=== PATIENT | female | born 1970 | race Hispanic/Latino ===

== ENCOUNTER 2018-12-24 09:49 | Inpatient (IN) | payer BC ==
[~2018-12-24] VITALS: Ht 152.4 cm; Wt 63.0 kg
[2018-12-24] MEDS ORDERED: ONDANSETRON HCL INJ 2MG/ML 2ML 2 MG/ML VIAL IV STA (10:12)
[2018-12-24] MEDS ORDERED: KETOROLAC TROMETHAMINE 30 MG/ML VIAL IV STA (10:12)
[2018-12-24] MEDS ORDERED: SODIUM CHLORIDE 0.9% 1000ML 1,000 ML IV STA (10:12)
[2018-12-24 10:32] LABS: BASOPHILS % 0.2 % (0.0-1.0); EOSINOPHILS % 0.1 % (0.0-6.0); HEMATOCRIT 39.7 % (34.2-44.1); HEMOGLOBIN 13.4 g/dL (12.0-16.0); LYMPHOCYTES % 11.6 % (18.0-39.1); MEAN CORPUSCULAR HEMOGLOBIN 29.6 pg (28-32); MEAN CORPUSCULAR HGB CONC 33.8 g/dL (31-35); MEAN CORPUSCULAR VOLUME 87.6 fL (81-99); MONOCYTES # (AUTO) 1.6 (0.2-0.8); MONOCYTES % 9.4 % (4.4-11.3); NEUTROPHILS # (AUTO) 13.3 (2.1-6.9); NEUTROPHILS % 78.3 % (38.7-80.0); PLATELET COUNT 306 x10e3/uL (140-360); RED BLOOD COUNT 4.53 x10e6/uL (3.6-5.1)
[2018-12-24 10:34] LABS: BILIRUBIN,URINE NEGATIVE (NEGATIVE); CLARITY,URINE CLEAR (CLEAR); COLOR,URINE YELLOW (YELLOW); KETONES,URINE NEGATIVE (NEGATIVE); LEUKOCYTE ESTERASE ,URINE LARGE (NEGATIVE); NITRITE,URINE NEGATIVE (NEGATIVE); PROTEIN,URINE DIPSTICK 1+ (NEGATIVE); URINE UROBILINOGEN 0.2 mg/dL (0.2 - 1)
[2018-12-24] MEDS ORDERED: CEFTRIAXONE SOD 1 GM/NS 50 ML 50 ML IV STA (10:48)
[2018-12-24] MEDS ORDERED: ONDANSETRON HCL INJ 2MG/ML 2ML 2 MG/ML VIAL ONE ×2 (10:50→13:54)
[2018-12-24 10:51] LABS: WBC,URINE (MAN) >50 /HPF (0-5)
[2018-12-24 10:52] LABS: BACTERIA,URINE MODERATE /HPF; EPITHELIAL CELLS,URINE MODERATE /LPF
[2018-12-24 10:54] LABS: ALANINE AMINOTRANSFERASE 44 IU/L (0-55); ALBUMIN 3.3 g/dL (3.5-5.0); ALBUMIN/GLOBULIN RATIO 0.7 (0.8-2.0); ALKALINE PHOSPHATASE 162 IU/L (40-150); ANION GAP 12.2 mmol/L (8-16); BLOOD UREA NITROGEN 6 mg/dL (7-26); BUN/CREATININE RATIO 8 (6-25); CALCIUM 10.1 mg/dL (8.4-10.2); CARBON DIOXIDE 27 mmol/L (22-29); CHLORIDE 100 mmol/L (98-107); CREATININE, SERUM 0.77 mg/dL (0.57-1.11); EST GLOMERULAR FILTRATION RATE > 60 ML/MIN (60-); GLUCOSE 125 mg/dL (74-118); POTASSIUM 3.2 mmol/L (3.5-5.1); SODIUM 136 mmol/L (136-145)
[2018-12-24 11:03] LABS: EOSINOPHILS % (MANUAL) 1 % (0-7); LYMPHOCYTES % (MANUAL) 12 % (19-48); MONOCYTES % (MANUAL) 11 % (3.4-9.0); NEUTROPHILS % (MANUAL) 75 % (40-74)
[2018-12-24 11:05] LABS: PLATELET ESTIMATE ADEQUATE; PLATELET MORPHOLOGY COMMENT FEW LARGE; RBC MORPHOLOGY COMMENT NORMAL
--- NOTE | 2018-12-24 11:52 | Diagnostic Imaging Report ---
EXAM: Right upper quadrant abdominal ultrasound INDICATION: Right upper quadrant pain COMPARISON: None. TECHNIQUE: Transverse and longitudinal images of the right upper quadrant abdomen were obtained FINDINGS: Liver: Size: 12.8 cm in the right midclavicular line, normal Appearance: Increased echogenicity, smooth contour Mass: No focal masses Gallbladder: The gallbladder is filled with gallstones with posterior shadowing. No pericholecystic fluid. No gallbladder distention. Negative reported sonographic Browning's sign. Gallbladder wall measures 4 mm. Bile Ducts: Intrahepatic Ducts: No dilatation Extrahepatic Ducts: Common bile duct measures 3 mm. Pancreas: Visualized portions of the pancreatic head, neck and proximal body are normal. Kidney: The right kidney measures 11.9 cm without evidence of hydronephrosis or stone. Vessels: Aorta: Visualized portions are normal Inferior Vena Cava: Visualized portions are normal Main Portal Vein: 1.4 cm, normal size with hepatopetal flow. Free Fluid: No ascites or pleural effusion IMPRESSION: Stone filled gallbladder. No specific sonographic evidence of cholecystitis. Hepatic steatosis. Signed by: Debra Kaur MD on 12/24/2018 11:48 AM
--- NOTE | 2018-12-24 11:59 | Diagnostic Imaging Report ---
EXAM: CT Abdomen and Pelvis WITHOUT intravenous contrast INDICATION: Right flank pain COMPARISON: Right upper quadrant ultrasound of the same day. TECHNIQUE: Abdomen and pelvis were scanned utilizing a multidetector helical scanner from the lung base to the pubic symphysis without administration of IV contrast. Coronal and sagittal reformations were obtained. IV CONTRAST: None ORAL CONTRAST: Water COMPLICATIONS: None RADIATION DOSE: Total DLP: 243.4 mGy*cm Dose modulation, iterative reconstruction, and/or weight based adjustment of the mA/kV was utilized to reduce the radiation dose to as low as reasonably achievable. FINDINGS: LOWER THORAX: Normal. HEPATOBILIARY: Diffuse hepatic steatosis. No focal liver lesion. Stones in the nondistended gallbladder are better seen on the right upper quadrant ultrasound of the same day. No CT evidence of cholecystitis. SPLEEN: No splenomegaly. PANCREAS: No focal masses or ductal dilatation. ADRENALS: No adrenal nodules. KIDNEYS/URETERS: 4 mm right distal ureteral calculus. Moderate right hydroureter and mild right hydronephrosis. No additional urinary calculi identified. No left hydronephrosis or renal calculi. No solid mass lesions. Mild right perinephric and periureteral fat stranding. PELVIC ORGANS/BLADDER: Unremarkable. PERITONEUM / RETROPERITONEUM: No free air or fluid. LYMPH NODES: No lymphadenopathy. VESSELS: Unremarkable. GI TRACT: Mild diverticulosis. No CT evidence of diverticulitis. Normal bowel thickening. No bowel obstruction. BONES AND SOFT TISSUES: No acute osseous injury. No suspicious lytic or blastic lesions. IMPRESSION: 4 mm right distal ureteral calculus with moderate right hydroureter and mild right hydronephrosis. Mild right perinephric and periureteral fat stranding. Diffuse hepatic steatosis. Known cholelithiasis is better evaluated on the right upper quadrant ultrasound of the same day. No CT evidence of cholecystitis. Signed by: Debra Kaur MD on 12/24/2018 11:55 AM
[2018-12-24] MEDS ORDERED: DEXAMETHASONE SOD PHOS INJ 4 MG/ML VIAL ONE (13:54)
[2018-12-24] MEDS ORDERED: SEVOFLURANE INHAL SOLN 250 ML PEN BTL ONE (13:54)
[2018-12-24] MEDS ORDERED: PROPOFOL IV EMULSION 10 MG/ML 20 ML VIAL ONE (13:54)
[2018-12-24] MEDS ORDERED: SUCCINYLCHOLINE 200 MG/10 ML SYR ONE (13:54)
[2018-12-24] MEDS ORDERED: LIDOCAINE HCL 2% LOCAL INJ 5 ML SDV VIAL INJ ONE (13:54)
[2018-12-24] MEDS ORDERED: CEFTRIAXONE SOD 1 GM VIAL IV SCH (14:00)
[2018-12-24] MEDS ORDERED: ONDANSETRON HCL INJ 2MG/ML 2ML 2 MG/ML VIAL IV PRN (14:00)
--- NOTE | 2018-12-24 14:21 | NUR ---
H&P cc: pain HPI:48yoF, PCP , developed right flank pain for 2 weeks. Over past 2 weeks, blood visible in urine. PMH: none PShx: breast biopsy Allergies; see emr FH/SH; ; no cigs meds; see emr ROS: no f/c/s/N/V/D/ARBOLEDA/vision changes/cp/sob/skin rash v/s; revd PE: tired appearing anicteric ns1s2 mod bs soft nd; RIGHT FLANK TENDER; EQUIVOCAL GUSMAN'S SIGN no e/t skin dry n. affect labs/meds revd A/P: Sepsis UTI Acute pyelonephritis Hypokalemia Right ureterolithiasis Right hydroureter Cholelithiasis ?Acute cholecystitis?- unclear hepatic steatosis PLAN IVF; IV abx; urology consult Surgical consult for cholelithiasis SCD/pepcid dispo; Dusty Marina MD, PhD.
[2018-12-24] MEDS: SODIUM CHLORIDE 0.9% 1000ML 1,000 ML IV SCH ×2 (15:13→21:22)
--- NOTE | 2018-12-24 15:39 | NUR ---
Report to RONI Gutiérrez
--- OUTSIDE RECORDS SUMMARY | 2018-12-24 15:55 | XMS REPORT ---
Author Author [facility] Address Unknown Phone Unavailable Care Team Providers Care Nurse Educator Name Role Phone TREY HENLEY Unavailable Unavailable Problems This patient has no known problems. Allergies, Adverse Reactions, Alerts This patient has no known allergies or adverse reactions. Medications This patient has no known medications. Results Test Description Test Time Test Comments Text Results Atomic Results Result Comments CT ABDOMEN/PELVIS WO 2018-12-24 11:50:00 [place] [address] Patient Name: VIDHYA VARGAS MR #: [id number] : 1970 Age/Sex: 48/F Req #: [id number] Adm Physician: Ordered by: AIXA WOOD DRAW IN HAND Report #: [id number] Location: ER Room/Bed: Procedure: [id number] CT/CT ABDOMEN/PELVIS WO Exam Date: 12/24/18 Exam Time: 1115 REPORT STATUS: Signed EXAM: CT Abdomen and Pelvis WITHOUT intravenous contrast INDICATION: Right flank pain COMPARISON: Right upper quadrant ultrasound of the same day. TECHNIQUE: Abdomen and pelvis were scanned utilizing a multidetector helical scanner from the lung base to the pubic symphysis without administration of IV contrast. Coronal and sagittal reformations were obtained. IV CONTRAST: None ORAL CONTRAST: Water COMPLICATIONS: None RADIATION DOSE: Total DLP: 243.4 mGy*cm Dose modulation, iterative reconstruction, and/or weight based adjustment of the mA/kV was utilized to reduce the radiation dose to as low as reasonably achievable. FINDINGS: LOWER THORAX: Normal. HEPATOBILIARY: Diffuse hepatic steatosis. No focal liver lesion. Stones in the nondistended gallbladder are better seen on the right upper quadrant ultrasound of the same day. No CT evidence of cholecystitis. SPLEEN: No splenomegaly. PANCREAS: No focal masses or ductal dilatation. ADRENALS: No adrenal nodules. KIDNEYS/URETERS: 4 mm right distal ureteral calculus. Moderate right hydroureter and mild right hydronephrosis. No additional urinary calculi identified. No left hydronephrosis or renal calculi. No solid mass lesions. Mild right perinephric and periureteral fat stranding. PELVIC ORGANS/BLADDER: Unremarkable. PERITONEUM / RETROPERITONEUM: No free air or fluid. LYMPH NODES: No lymphadenopathy. VESSELS: Unremarkable. GI TRACT: Mild diverticulosis. No CT evidence of diverticulitis. Normal bowel thickening. No bowel obstruction. BONES AND SOFT TISSUES: No acute osseous injury. No suspicious lytic or blastic lesions. IMPRESSION: 4 mm right distal ureteral calculus with moderate right hydroureter and mild right hydronephrosis. Mild right perinephric and periureteral fat stranding. Diffuse hepatic steatosis. Known cholelithiasis is better evaluated on the right upper quadrant ultrasound of the same day. No CT evidence of cholecystitis. Signed by: Andre Jansen MD on 12/24/2018 11:55 AM Dictated By: ANDRE JANSEN MD 1154 Transcribed By: LIZ on 12/24/18 1152 COPY TO: AIXA WOOD NP GALLBLADDER 2018-12-24 11:46:00 [place] [address] Patient Name: VIDHYA VARGAS MR #: [id number] : 1970 Age/Sex: 48/F Req #: [id number] Adm Physician: Ordered by: AIXA WOOD NP Report #: [id number] Location: ER Room/Bed: Procedure: [id number] US/US GALLBLADDER Exam Date: 12/24/18 Exam Time: 1049 REPORT STATUS: Signed EXAM: Right upper quadrant abdominal ultrasound I NDICATION: Right upper quadrant pain COMPARISON: None. TECHNIQUE: Transverse and longitudinal images of the right upper quadrant abdomen were obtained FINDINGS: Liver: Size: 12.8 cm in the right midclavicular line, normal Appearance: Increased echogenicity, smooth contour Mass: No focal masses Gallbladder: The gallbladder is filled with gallstones with posterior shadowing. No pericholecystic fluid. No gallbladder distention. Negative reported sonographic Browning's sign. Gallbladder wall measures 4 mm. Bile Ducts: Intrahepatic Ducts: No dilatation Extrahepatic Ducts: Common bile duct measures 3 mm. Pancreas: Visualized portions of the pancreatic head, neck and proximal body are normal. Kidney: The right kidney measures 11.9 cm without evidence of hydronephrosis or stone. Vessels: Aorta: Visualized portions are normal Inferior Vena Cava: Visualized portions are normal Main Portal Vein: 1.4 cm, normal size with hepatopetal flow. Free Fluid: No ascites or pleural effusion IMPRESSION: Stone filled gallbladder. No specific sonographic evidence of cholecystitis. Hepatic steatosis. Signed by: Andre Jansen MD on 12/24/2018 11:48 AM Dictated By: ANDRE JANSEN MD 1148 Transcribed By: LIZ on 12/24/18 1148 COPY TO: AIXA WOOD NP BREAST ULTRASOUND CORE BIOPSY LEFT 2018-12-16 15:12:45 - BREAST ULTRASOUND CORE BIOPSY LEFTULTRASOUND GUIDED BIOPSY LEFT BREAST WITH MARKING DEVICE INSERTED: 12/11/2018CLINICAL: Ultrasound biopsy, left breast. Comparison is made to exam dated 11/14/2018 ultrasound - [facility]-. An ultrasound guided biopsy using real-time ultrasound was performed for the circumscribed oval mass located in the left breast at 12 o'clock, anterior depth. This was described on the previous mammography and ultrasound reports. The skin was prepped in the usual manner. Local anesthetic was administered to the access site. The abnormality was approached from the lateral aspect. A biopsy needle was placed adjacent to the abnormality under ultrasound guidance. Once the needle was documented to be in the correct location, a specimen was obtained using a BARD biopsy device. A clip was inserted into the biopsy cavity. The specimen was sent to the laboratory for pathological analysis. IMPRESSION: ULTRASOUND GUIDED BIOPSYUltrasound guided biopsy of the mass in the left breast at 12 o'clock, anterior depth, was successful with no apparent post procedure complications. Waiting for pathology results. A final report will be issued when these become available. 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 RECOMMENDATION:Surgical consultation is recommended at this time g iven the presence of ALH.Torito Winters M.D.,qn/:12/16/2018 15:12:45 Entry: - 12/16/2018 15:21:55Imaging Technologist: Patricia FIGUEROA, [facility]letter sent: Surgical Consult Recommended DIAG MAMM LEFT CAD DIGITAL 2018-12-11 08:47:28 - DIAG MAMM LEFT CAD DIGITALUNILATERAL LEFT DIGITAL DIAGNOSTIC MAMMOGRAM WITH CAD POST-PROCEDURE IMAGING FOR MARKER PLACEMENT: 12/11/2018CLINICAL: Post clip. Current mammographic images were evaluated by either a [employer] M-Vu or a [employer] ImageChecker CAD (computer aided detection system). Comparison is made to exams dated 11/14/2018 mammogram and 10/11/2017 mammogram - [facility]-. The tissue of the left breast is heterogeneously dense. This may lower the sensitivity of mammography. Postprocedure mammogram demonstrates biopsy marker clip within the biopsied left breast mass at 11-12 o'clock, middle depth.IMPRESSION: POST PROCEDURE IMAGING FOR MARKER PLACEMENTSuccessful biopsy marker placement within the biopsied left breast mass.Torito Patel M.D. ss/:12/11/2018 08:47:28 Public Address System Installer: Brooke FIGUEROA, [facility]-Mammogram BI- RADS: Post-procedure mammogram for marker placement BREAST ULTRASOUND BILATERAL 2018-11-14 11:07:01 - DIAG MAMM BILATERAL COSME CAD DIGITALBILATERAL DIGITAL DIAGNOSTIC MAMMOGRAM 3D/2D WITH CAD: 11/14/2018CLINICAL: 6 Month follow-up. Digital breast tomosynthesis was performed in addition to routine CC and MLO views. Current mammographic images were evaluated by either a [employer] M-Vu or a [employer] ImageChecker CAD (computer aided detection system). Comparison is made to exam dated 10/11/2017 mammogram and ultrasound - [facility]-. The tissue of both breasts is heterogeneously dense. This may lower the sensitivity of mammography. Due to increased breast density, the previously noted masses in the right breast at 12 o'clock, 2 cm from the nipple and in the left breast at 12 o'clock, 3 cm from the nipple, are partially obscured on the current exam. No architectural distortion, malignant type calcification, or lymph node abnormality detected. INCOMPLETE: ADDITIONAL IMAGING EVALUATION NEEDEDUltrasound is recommended, and will be performed later today, to further evaluate the previously noted bilateral breast masses, as above.- BREAST ULTRASOUND BILATERALULTRASOUND OF BOTH BREASTS AND BOTH AXILLA: 11/14/2018Comparison is made to exam dated 10/11/2017 mammogram - [facility]. Real-time ultrasound of both breasts and both axilla was performed. RIGHT BREAST: There is a benign appearing 8 x 3 x 9 mm oval circumscribed mass in the right breast at 12 o'clock, 2 cm from the nipple. No associated increased vascularity is identified. This mass is grossly stable in sonographic appearance; it previously measured 8 x 3 x 9 mm in September 2017. The remainder of the right breast and right axillary ultrasound is unremarkable.LEFT BREAST: There is a 10 x 5 x 11 mm complex cystic and solid mass in the left breast at 12 o'clock, 3 cm from the nipple. Mild increased vascularity is identified along the internal solid appearing echogenic component. The remainder of the left breast and left axillary ultrasound is unremarkable.IMPRESSION: SUSPICIOUS OF MALIGNANCY - FOLLOW-UP RECOMMENDEDLEFT BREAST: The 11 mm complex cystic and solid mass in the left breast at 12 o'clock, 3 cm from the nipple, is at an intermediate suspicion for malignancy. A core biopsy (of the central echogenic component) is recommended. BIRADS 4BRIGHT BREAST: The 8 mm mass in the right breast at 12 o'clock, 2 cm from the nipple, has been stable in sonographic appearance since September 2017. Follow-up ultrasound may be performed (at the time of annual bilateral mammogram) to document sonographic stability 2 years.Results and recommendations were discussed with the patient.Delmi Flores M.D. ar/:11/14/2018 11:07:01 Attending Technologist: Kim Son FW, [facility]-Imaging Technologist: Rose Medina FW, [facility]-letter sent: BIRADS 4/5 Biopsy Mammogram BI-RADS: 0 Incomplete: Additional Imaging Evaluation Needed Ultrasound BI-RADS: 4b Suspicious abnormality - intermediate suspicion of malignancy DIAG MAMM BILATERAL COSME CAD DIGITAL 2018-11-14 11:07:01 - DIAG MAMM BILATERAL COSME CAD DIGITALBILATERAL DIGITAL DIAGNOSTIC MAMMOGRAM 3D/2D WITH CAD: 11/14/2018CLINICAL: 6 Month follow-up. Digital breast tomosynthesis was performed in addition to routine CC and MLO views. Current mammographic images were evaluated by either a [employer] M-Vu or a [employer] ImageTaykeyer CAD (computer aided detection system). Comparison is made to exam dated 10/11/2017 mammogram and ultrasound - [facility]. The tissue of both breasts is heterogeneously dense. This may lower the sensitivity of mammography. Due to increased breast density, the previously noted masses in the right breast at 12 o'clock, 2 cm from the nipple and in the left breast at 12 o'clock, 3 cm from the nipple, are partially obscured on the current exam. No architectural distortion, malignant type calcification, or lymph node abnormality detected. INCOMPLETE: ADDITIONAL IMAGING EVALUATION NEEDEDUltrasound is recommended, and will be performed later today, to further evaluate the previously noted bilateral breast masses, as above.- BREAST ULTRASOUND BILATERALULTRASOUND OF BOTH BREASTS AND BOTH AXILLA: 11/14/2018Comparison is made to exam dated 10/11/2017 [facility] Real-time ultrasound of both breasts and both axilla was performed. RIGHT BREAST: There is a benign appearing 8 x 3 x 9 mm oval circumscribed mass in the right breast at 12 o'clock, 2 cm from the nipple. No associated increased vascularity is identified. This mass is grossly stable in sonographic appearance; it previously measured 8 x 3 x 9 mm in September 2017. The remainder of the right breast and right axillary ultrasound is unremarkable.LEFT BREAST: There is a 10 x 5 x 11 mm complex cystic and solid mass in the left breast at 12 o'clock, 3 cm from the nipple. Mild increased vascularity is identified along the internal solid appearing echogenic component. The remainder of the left breast and left axillary ultrasound is unremarkable.IMPRESSION: SUSPICIOUS OF MALIGNANCY - FOLLOW-UP RECOMMENDEDLEFT BREAST: The 11 mm complex cystic and solid mass in the left breast at 12 o'clock, 3 cm from the nipple, is at an intermediate suspicion for malignancy. A core biopsy (of the central echogenic component) is recommended. BIRADS 4BRIGHT BREAST: The 8 mm mass in the right breast at 12 o'clock, 2 cm from the nipple, has been stable in sonographic appearance since September 2017. Follow-up ultrasound may be performed (at the time of annual bilateral mammogram) to document sonographic stability 2 years.Results and recommendations were discussed with the patient.Delmi Flores M.D. ar/:11/14/2018 11:07:01 Attending Technologist: Kim FIGUEROA, [facility]-FWImaging Technologist: Rose FIGUEROA, [facility]-FWletter sent: BIRADS 4/5 Biopsy Mammogram BI-RADS: 0 Incomplete: Additional Imaging Evaluation Needed Ultrasound BI-RADS: 4b Suspicious abnormality - intermediate suspicion of malignancy BREAST ULTRASOUND BILATERAL 2018-04-14 09:03:28 - BREAST ULTRASOUND BILATERALULTRASOUND OF BOTH BREASTS AND BOTH AXILLA: 04/14/2018CLINICAL: Followup to previous exam. Comparison is made to exam dated 10/11/2017 ultrasound - [facility] Real-time ultrasound of both breasts and both axilla was performed. There is a stable benign 1 cm oval mass in the right breast at 12 o'clock, 2 cm from the nipple. There is a benign 1.9 cm sebaceous cyst in the right breast at 4 o'clock, 7 cm from the nipple. There is a stable benign 1.2 cm partially solid mass in the left breast at 12 o'clock, 3 cm from the nipple. No abnormalities were seen sonographically in either axilla. IMPRESSION: BENIGN - FOLLOW-UP RECOMMENDEDThere is no sonographic evidence of malignancy. The sebaceous cyst in the right breast at 4 o'clock is benign however it is in the bra line for the patient and is uncomfortable. Consideration should be given to removing the sebaceous cyst while it is not infected. A follow-up mammogram and an ultrasound in 6 months is recommended to demonstrate stability. Radha Agosto M.D. dm/:04/14/2018 09:03:28 Public Address System Installer: Jennie Saavedra , [facility]-FWletter sent: BIRADS 1-2 Combo FU Letter Ultrasound BI -RADS: 2 Benign
[2018-12-24 16:00] VITALS: BP 151/84
--- NOTE | 2018-12-24 16:00 | NUR ---
SCDS ON BOTH LEGS
--- NOTE | 2018-12-24 16:30 | NUR ---
RCD PT FROM ER BY BED PT IS ALERT AND ORIENTED PT RESTING ON BED VITALS CHECKED FAMILY AT BED SIDE PT IS POLISH SPEAKING SON SPEAKING [place]ILI ADMISSION ASSESSMENT DONE PT C/O PAIN ON LEFT SIDE OF ABDOMEN AND MOVING TO BACK IV PATENT AND RUNNING 125 ML/HR FAMILY AT BED SIDE INSTRUCTED THE PT AND FAMILY REGARDING HOSPITAL POLICY AND ROUTINE BED LOW AND LOCKED CALL LIGHT INREACH
[2018-12-24] MEDS: FAMOTIDINE 20 MG/2 ML VIAL IV SCH (17:00)
[2018-12-24 17:10] VITALS: BP 151/84
[2018-12-24 17:15] VITALS: BP 151/84
--- NOTE | 2018-12-24 17:47 | NUR ---
DR JOHNSON AND DR ELLIOTT RETURNED THE CALL REGARDING CONSULTATION GOT THE ORDER TO NPO NOW ONWARDS
--- NOTE | 2018-12-24 17:50 | NUR ---
PT HAVE FEVER [address] JOHNSON HE SAID PREPARE THE PT FOR SURGERY NOW OR NOTIFY THE SENIOR APPLICATION SOFTWARE ENGINEER TO CALL THE OR TEAM
--- NOTE | 2018-12-24 18:00 | NUR ---
PAGED DR LEXI JOHNSON IS DOING SURGERY ON TODAY HE SAID OK
--- NOTE | 2018-12-24 18:00 | NUR ---
PT SIGNED THE CONSENT FOR PROCEDURE PT NPO FAMILY AT BED SIDE
--- NOTE | 2018-12-24 18:50 | NUR ---
PT WENT TO PROCEDURE IN SAFE CONDITION
[2018-12-24] MEDS ORDERED: IOPAMIDOL 300MG/ML 50ML INFUS..BTL IV ONE (18:59)
[2018-12-24] MEDS ORDERED: ACETAMINOPHEN 1000 MG/100 ML 100 ML IV ONE (19:58)
--- NOTE | 2018-12-24 20:30 | NUR ---
Patient returned form PACU VS/S. No resp distress. Denies pain at this time. ABD soft to touch. Void to restroom upon arrival with clear yellow urine. No blood. Call light within reach and instructed to call for assistance. Patient verbalized understanding.
[2018-12-24 21:16] VITALS: BP 125/61
[2018-12-24] MEDS: LEVOFLOXACIN 500MG/D5W 100ML 100 ML IV SCH (21:22)
[2018-12-24 21:30] VITALS: BP 125/61
[2018-12-24] MEDS ORDERED: ACETAMINOPHEN 325 MG TAB PO PRN (21:45)
--- NOTE | 2018-12-24 21:45 | NUR ---
Received orders from Dr. Marina
[2018-12-24 23:26] VITALS: BP 90/52
--- NOTE | 2018-12-25 01:13 | Consultation ---
DATE OF CONSULTATION: 12/24/2018 Urologic consultation. Consultation is called by Dr. Marina. CHIEF COMPLAINT AND REASON FOR CONSULTATION: Sepsis, pyelonephritis, kidney stone. HISTORY OF PRESENT ILLNESS: Ms. Diaz is a 48-year-old female patient with over two-week history of severe right-sided flank pain and fevers. She was sent to the emergency room by her primary care doctor to rule out pyelonephritis. The patient was seen in the emergency room per reports at 10 o'clock in the morning, admitted to the hospital. Urologic consultation was not requested until 1723 p.m., so the patient is spiking fevers to 104 degrees, tachycardic, hypertensive. She has acute sharp severe right-sided flank pain radiating to the anterior abdomen. Positive dysuria, question gross hematuria. PAST MEDICAL HISTORY: Noted for and breast cyst surgery. MEDICATIONS: Please see MAR. ALLERGIES: NKDA. SOCIAL HISTORY: No smoking or drinking. FAMILY HISTORY: Denied urologic stones or malignancies. REVIEW OF SYSTEMS: Noncontributory other than problems mentioned above for 12-organ systems PHYSICAL EXAMINATION: GENERAL: Middle-aged female, in no acute distress. VITAL SIGNS: Currently temperature 104, pulse 110, respirations 18, and blood pressure 131/82. HEENT: Sclerae anicteric. NECK: Supple. BACK: With costovertebral angle tenderness on the right. ABDOMEN: Soft, obese, nontender, nondistended. No palpable mass. No palpable hernias. No palpable adenopathy. GENITOURINARY: Normal female external genitalia. EXTREMITIES: No edema. PSYCH: Alert and mood appropriate. SKIN: Intact. Normal color. PERTINENT LABORATORY DATA: CBC normal except for white blood cell count of 17. CT scan revealing a 4 mm right distal ureteral calculus, right hydronephrosis, fatty liver. BMP normal except for potassium 3.2, glucose 125. Urinalysis, greater than 50 whites, 6-10 reds. HCG negative. IMPRESSION: 1. Right ureteral calculus. 2. Right hydronephrosis. 3. Pyelonephritis. 4. Urinary tract infection. 5. Microscopic hematuria. 6. Hypokalemia. 7. Sepsis shock including tachycardia, hypertension, fever, leukocytosis with left shift. PLAN: The patient needs emergent decompressions in the obstructed infected system. We will take the patient to the OR available. Thank you for allowing me to participate in the care of your patient. We will take care of this critically ill patient. MD SHAAN Rivera/MODL /[id number] cc: Dusty Marina MD
--- NOTE | 2018-12-25 01:39 | Operative Report ---
DATE OF PROCEDURE: 12/24/2018 SURGEON: Jase Murdock MD PREOPERATIVE DIAGNOSES: 1. Microscopic hematuria. 2. Right-sided hydronephrosis. POSTOPERATIVE DIAGNOSES: 1. Microscopic hematuria. 2. Right-sided hydronephrosis. PROCEDURES: 1. Cystourethroscopy with left ureter catheterization, left retrograde pyelogram (entirely separate procedure for microscopic hematuria). 2. Cystourethroscopy with right insertion of right ureteral stent (entirely separate procedure for hydronephrosis). 3. Supervision of fluoroscopy. 4. Interpretation of retrograde pyelography. ANESTHESIA: General. ESTIMATED BLOOD LOSS: Minimal. COMPLICATIONS: None. INDICATIONS: Ms. Diaz is a 48-year-old female with a history of right-sided hydronephrosis, sepsis, obstructed infected systems. She had a long discussion about alternatives, risks, and benefits of doing nothing, stent placement, and nephrostomy. She voiced understanding of the options, alternatives, risks, and benefits and would like to proceed with stent placement. She voiced explicit understanding that stent is a temporary indwelling device and it must be removed and failure to do so could lead to encrustation infection, inflammation, atrophy, loss of kidney, and even . She elected to proceed. PROCEDURE IN DETAIL: After informed consent was obtained, the patient was taken to the operative suite, placed supine on the operating table. She underwent general anesthesia by Anesthesia Service, was placed in dorsal lithotomy position and sterilely prepped and draped for cystoscopy. A 21-Danish cystoscope was inserted per urethra. Normal urethra was noted. Panendoscopy of the bladder revealed no tumors, no stones. Both ureteral orifices were in normal anatomic location and position, and were seen to efflux clear urine. Bilateral retrograde pyelogram was performed. Left revealed normal retrograde pyelogram, right revealed hydronephrosis. Stone was manipulated proximally and hydronephrotic ureter. A 7 x 24 ureteral stent was deployed with a coil in renal pelvis and a coil in the bladder. The patient's bladder was then drained. The patient was awakened from anesthesia and transported to the recovery room in excellent condition. Supervision of fluoroscopy, interpretation of retrograde pyelography: I was present for the entire procedure and I supervised fluoroscopy. There was no radiologist present. Attention was turned to the left and right ureters, which were catheterized with a 5-Danish cone-tipped catheter. Retrograde pyelogram was performed on the left revealing a delicate ureter, delicate pelvocaliceal system, no evidence of filling defects, no evidence of hydronephrosis. On the right side, initially under fluoroscopy, there was right distal ureteral calculi. This was manipulated proximally, seen in the collecting system under brief retrograde pyelogram. Postoperative views on the right side revealed ureteral stent with a coil in the renal pelvis and a coil bladder on the right side. IMPRESSION: Right hydronephrosis, right ureteral calculus, right ureteral stent in adequate position, normal left retrograde pyelogram. Jase Murdock MD ES/MODL /[id number] cc: Dusty Marina MD
[2018-12-25 05:27] LABS: BASOPHILS % 0.2 % (0.0-1.0); EOSINOPHILS # (AUTO) 0.1 (0.0-0.4); EOSINOPHILS % 0.5 % (0.0-6.0); HEMOGLOBIN 11.1 g/dL (12.0-16.0); LYMPHOCYTES # (AUTO) 1.9 (1.0-3.2); LYMPHOCYTES % 15.2 % (18.0-39.1); MEAN CORPUSCULAR HEMOGLOBIN 29.1 pg (28-32); MEAN CORPUSCULAR HGB CONC 32.6 g/dL (31-35); MONOCYTES # (AUTO) 1.2 (0.2-0.8); MONOCYTES % 9.8 % (4.4-11.3); NEUTROPHILS # (AUTO) 9.3 (2.1-6.9); NEUTROPHILS % 73.9 % (38.7-80.0); PLATELET COUNT 265 x10e3/uL (140-360); RED BLOOD COUNT 3.82 x10e6/uL (3.6-5.1); RED CELL DISTRIBUTION WIDTH 14.1 % (11.7-14.4)
[2018-12-25] MEDS: SODIUM CHLORIDE 0.9% 1000ML 1,000 ML IV SCH ×2 (05:47→13:57)
[2018-12-25 05:48] LABS: ALANINE AMINOTRANSFERASE 40 IU/L (0-55); ALBUMIN 2.6 g/dL (3.5-5.0); ALBUMIN/GLOBULIN RATIO 0.6 (0.8-2.0); ALKALINE PHOSPHATASE 179 IU/L (40-150); ANION GAP 12.4 mmol/L (8-16); BLOOD UREA NITROGEN 7 mg/dL (7-26); BUN/CREATININE RATIO 10 (6-25); CALCIUM 8.6 mg/dL (8.4-10.2); CARBON DIOXIDE 23 mmol/L (22-29); CHLORIDE 107 mmol/L (98-107); CREATININE, SERUM 0.69 mg/dL (0.57-1.11); EST GLOMERULAR FILTRATION RATE > 60 ML/MIN (60-); GLUCOSE 99 mg/dL (74-118); POTASSIUM 3.4 mmol/L (3.5-5.1); SODIUM 139 mmol/L (136-145)
[2018-12-25 05:53] VITALS: BP 116/69
--- NOTE | 2018-12-25 07:10 | NUR ---
RCD PT AT BED PT IS ALERT AND ORIENTED PT RESTING ON BED IV PATENT FAMILY AT BED SIDE BED LOW AND LOCKED CALL LIGHT IN REACH
--- NOTE | 2018-12-25 07:26 | NUR ---
IM- progress note O/N no events ROS: no f/c/s/N/V/D/ARBOLEDA/vision changes/cp/sob/skin rash v/s; revd PE: tired appearing anicteric ns1s2 mod bs soft nd; RIGHT FLANK TENDER; EQUIVOCAL GUSMAN'S SIGN no e/t skin dry n. affect labs/meds revd A/P: Sepsis UTI - GNR Acute pyelonephritis Hypokalemia Right ureterolithiasis Right hydroureter Cholelithiasis ?Acute cholecystitis?- unclear hepatic steatosis PLAN IVF; IV abx; urology consult Surgical consult for cholelithiasis SCD/pepcid dispo; 12/25 s/p urinary stent. GNR UTI. Dusty Marina MD, PhD.
[2018-12-25] MEDS ORDERED: POTASSIUM CHLORIDE 20 MEQ TAB CR PO ONE (08:10)
[2018-12-25 08:38] VITALS: BP 119/64
[2018-12-25] MEDS: CEFTRIAXONE SOD 1 GM/NS 50 ML 50 ML IV SCH (09:00)
[2018-12-25] MEDS: FAMOTIDINE 20 MG/2 ML VIAL IV SCH ×2 (09:00→17:00)
[2018-12-25 12:21] VITALS: BP 122/80
--- NOTE | 2018-12-25 13:52 | Consultation ---
DATE OF CONSULTATION: 12/25/2018 HISTORY OF PRESENT ILLNESS: The patient is a 48-year-old female admitted to the hospital yesterday with right flank pain and fever. She had urologic procedure last night, which was placement of right ureteral stent. She says she feels better now. She has been found to have gallstones on ultrasound. She denies any epigastric or right upper quadrant abdominal pain now or previously and no symptoms are that referable to the gallbladder. No symptoms of jaundice. PAST MEDICAL HISTORY: Significant for previous section and excision of a cyst on her breast. MEDICATIONS: There were no home medications. ALLERGIES: SHE HAS NO KNOWN ALLERGIES. FAMILY HISTORY: Noncontributory. SOCIAL HISTORY: The patient does not smoke cigarettes or drink alcohol. REVIEW OF SYSTEMS: As stated above. She has had recent fever with right flank pain due to obstructing ureteral stone, which has been treated. PHYSICAL EXAMINATION: GENERAL: The patient is awake and alert, in no distress. VITAL SIGNS: At this time are normal. HEENT: The sclerae are not icteric. NECK: Supple. No masses. LUNGS: Equal breath sounds are clear bilaterally. CARDIAC: Regular rate and rhythm with no murmur. ABDOMEN: Soft. There is no tenderness. No mass. No distention. No organomegaly. EXTREMITIES: Have no edema. Pulses are palpable. NEUROLOGIC: Intact. ASSESSMENT: A 48-year-old female admitted to the hospital with sepsis secondary to urinary tract obstruction, which has been treated by Urology. She does have gallstones with no symptoms referable to the gallbladder. At this time, no intervention is needed for her cholelithiasis, which is asymptomatic. Recommend continue therapy as ordered now for sepsis due to urinary tract infection and obstruction. Thank you for asking me to see Ms. Diaz. MD DANGELO Levin/CLARI /[id number]
--- NOTE | 2018-12-25 18:39 | NUR ---
PT RESTING ON BED BED SIDE REPORT GIVEN TO ONCOMING NURSE
[2018-12-25] MEDS ORDERED: MIDAZOLAM HCL 2 MG/2 ML VIAL ONE (18:44)
[2018-12-25] MEDS ORDERED: FENTANYL CITRATE/PF 100MCG/2 ML INJ ONE (18:44)
[2018-12-25 20:00] VITALS: BP 160/80
[2018-12-25] MEDS: LEVOFLOXACIN 500MG/D5W 100ML 100 ML IV SCH (20:56)
[2018-12-25 22:55] VITALS: BP 160/80
[2018-12-26] VITALS (8 sets, daily range): BP systolic 140–174; BP diastolic 77–84
[2018-12-26] MEDS: SODIUM CHLORIDE 0.9% 1000ML 1,000 ML IV SCH ×4 (04:35→22:15)
[2018-12-26 05:33] LABS: ANION GAP 12.6 mmol/L (8-16); BLOOD UREA NITROGEN 6 mg/dL (7-26); BUN/CREATININE RATIO 9 (6-25); CALCIUM 9.2 mg/dL (8.4-10.2); CARBON DIOXIDE 22 mmol/L (22-29); CHLORIDE 109 mmol/L (98-107); CREATININE, SERUM 0.64 mg/dL (0.57-1.11); EST GLOMERULAR FILTRATION RATE > 60 ML/MIN (60-); GLUCOSE 98 mg/dL (74-118); POTASSIUM 3.6 mmol/L (3.5-5.1); SODIUM 140 mmol/L (136-145)
--- NOTE | 2018-12-26 07:15 | NUR ---
walking rounds completed and shift change report received from retail shift leader RN; will continue to monitor.
[2018-12-26] MEDS: FAMOTIDINE 20 MG/2 ML VIAL IV SCH ×2 (11:09→17:58)
[2018-12-26] MEDS: CEFTRIAXONE SOD 1 GM/NS 50 ML 50 ML IV SCH (11:10)
--- NOTE | 2018-12-26 12:20 | NUR ---
IM- progress note O/N no events ROS: no f/c/s/N/V/D/ARBOLEDA/vision changes/cp/sob/skin rash v/s; revd PE: tired appearing anicteric ns1s2 mod bs soft nd; RIGHT FLANK TENDER; EQUIVOCAL GUSMAN'S SIGN no e/t skin dry n. affect labs/meds revd A/P: Sepsis UTI - GNR Acute pyelonephritis Hypokalemia Right ureterolithiasis Right hydroureter Cholelithiasis ?Acute cholecystitis?- unclear hepatic steatosis PLAN IVF; IV abx; urology consult Surgical consult for cholelithiasis SCD/pepcid dispo; 12/25 s/p urinary stent. GNR UTI. 12/26 E.coli UTI- improving; cont IV abx; d/c planning; Dutsy Marina MD, PhD.
[2018-12-26] MEDS: LEVOFLOXACIN 500MG/D5W 100ML 100 ML IV SCH (21:27)
--- NOTE | 2018-12-26 21:32 | NUR ---
Patient's BP elevated (177/94) with a HR of 84. Dr. Za Marina notified. New order received for Labetalol 100 mg PO Q12H .
[2018-12-26] MEDS: LABETALOL HCL 100 MG TAB PO SCH (22:14)
--- NOTE | 2018-12-26 22:35 | NUR ---
Patient's BP re-checked and recorded as 160/93 with a HR of 84. Will continue to monitor.
[2018-12-27 00:23] VITALS: BP 154/72
--- NOTE | 2018-12-27 04:41 | NUR ---
Patient received sitting up in bed. AAO x 3. Family at bedside. Patient had no complaints of pain. Respirations even and non-labored. Fall precautions implemented. IVF infusing at 125 cc /hr. Patient instructed to call for assistance when needed. Call light within reach
[2018-12-27] MEDS: SODIUM CHLORIDE 0.9% 1000ML 1,000 ML IV SCH (05:57)
[2018-12-27 05:58] LABS: BASOPHILS % 0.3 % (0.0-1.0); EOSINOPHILS # (AUTO) 0.2 (0.0-0.4); HEMOGLOBIN 11.5 g/dL (12.0-16.0); LYMPHOCYTES # (AUTO) 2.3 (1.0-3.2); LYMPHOCYTES % 23.3 % (18.0-39.1); MEAN CORPUSCULAR HEMOGLOBIN 28.4 pg (28-32); MEAN CORPUSCULAR HGB CONC 31.9 g/dL (31-35); MEAN CORPUSCULAR VOLUME 88.9 fL (81-99); MONOCYTES # (AUTO) 0.8 (0.2-0.8); NEUTROPHILS # (AUTO) 6.6 (2.1-6.9); NEUTROPHILS % 66.1 % (38.7-80.0); PLATELET COUNT 334 x10e3/uL (140-360); RED BLOOD COUNT 4.05 x10e6/uL (3.6-5.1); RED CELL DISTRIBUTION WIDTH 13.8 % (11.7-14.4)
[2018-12-27 06:18] VITALS: BP 172/80
[2018-12-27 06:24] LABS: ANION GAP 14.5 mmol/L (8-16); BLOOD UREA NITROGEN 6 mg/dL (7-26); BUN/CREATININE RATIO 10 (6-25); CALCIUM 9.9 mg/dL (8.4-10.2); CARBON DIOXIDE 25 mmol/L (22-29); CHLORIDE 105 mmol/L (98-107); CREATININE, SERUM 0.62 mg/dL (0.57-1.11); EST GLOMERULAR FILTRATION RATE > 60 ML/MIN (60-); GLUCOSE 104 mg/dL (74-118); POTASSIUM 3.5 mmol/L (3.5-5.1); SODIUM 141 mmol/L (136-145)
[2018-12-27 07:26] VITALS: BP 143/71
[2018-12-27 08:26] VITALS: BP 143/71
[2018-12-27] MEDS: CEFTRIAXONE SOD 1 GM/NS 50 ML 50 ML IV SCH (09:30)
[2018-12-27] MEDS: FAMOTIDINE 20 MG/2 ML VIAL IV SCH (09:30)
[2018-12-27] MEDS: LABETALOL HCL 100 MG TAB PO SCH (09:30)
--- NOTE | 2018-12-27 09:46 | NUR ---
D/C summary Principal dx: Sepsis UTI - E.coli Acute pyelonephritis Hypokalemia Right ureterolithiasis s/p stent Right hydroureter Cholelithiasis Does NOT have acute cholecystitis hepatic steatosis PLAN IVF; IV abx; urology consult Surgical consult for cholelithiasis SCD/pepcid dispo; 12/25 s/p urinary stent. GNR UTI. 12/26 E.coli UTI- improving; cont IV abx; d/c planning; 12/27 leukocytosis resolved; d/c home on keflex f/u pcp 1 week and urology 2 week stable d/c>35mins Dusty Marina MD, PhD.
[2018-12-27] MEDS ORDERED: KEFLEX500 MG PO (09:55)
[2018-12-27] MEDS ORDERED: LABETALOL HCL100 MG PO (09:55)
[2018-12-27 11:27] VITALS: BP 140/70
--- NOTE | 2018-12-27 13:20 | NUR ---
patient discharged home. prescription given, IV canula removed with tip intact, no ss of infiltration noted, denies any pain , not in any distress, at bed side.
== END 2018-12-27 13:24 | disposition home or self-care (01) | DRG 853 ==
LOC: ER 09:49 → ERHOLD 15:51 → MED/SURG2 15:55
PROVIDERS: ADMIT Internal Medicine; ATTEND Internal Medicine
PROC: BT141ZZ Fluoroscopy of Kidneys, Ureters and Bladder using Low Osmolar Contrast (ICD-10-PCS; 2018-12-24)
PROC: 0T768DZ Dilation of Right Ureter with Intraluminal Device, Via Natural or Artificial Opening Endoscopic (ICD-10-PCS; principal; 2018-12-24 19:10)
PROC: 0T778ZZ Dilation of Left Ureter, Via Natural or Artificial Opening Endoscopic (ICD-10-PCS; 2018-12-24 19:10)
DX: A41.9 Sepsis, unspecified organism (principal); R65.21 Severe sepsis with septic shock; N10 Acute pyelonephritis; N13.6 Pyonephrosis; N20.1 Calculus of ureter; E87.6 Hypokalemia; K76.0 Fatty (change of) liver, not elsewhere classified; B96.20 Unspecified Escherichia coli [E. coli] as the cause of diseases classified elsewhere; K80.20 Calculus of gallbladder without cholecystitis without obstruction; D64.9 Anemia, unspecified; R31.29 Other microscopic hematuria
CPT/HCPCS: 36415; 74176; 74420; 76705; 80048; 80053; 81001; 84702; 85025; 87086; 87186; 99284; C1758; C2617; J0696; J1100; J1885; J1956; J2001; J2250; J2405; J3010; J7030